=== PATIENT | male | born 1940 | race Caucasian/White ===

== ENCOUNTER 2020-05-30 07:02 | Inpatient (IN) | payer MEDICARE, BC ==
[2020-05-23 12:23] LABS: CLARITY,URINE SLIGHTLY CLOUDY (Clear); COLOR,URINE YELLOW (Yellow); GLUCOSE, URINE NEGATIVE (Neg); KETONES,URINE NEGATIVE (Neg); LEUKOCYTE ESTERASE ,URINE NEGATIVE (Neg); NITRITES, URINE NEGATIVE (Neg); OCCULT BLOOD,URINE NEGATIVE (Neg); PH,URINE 6.5 (4.8-8.0); PROTEIN,URINE NEGATIVE (Neg); UROBILINOGEN,URINE 0.2 E.U/dL (0.2-1.0)
[2020-05-23 12:24] LABS: BASOPHILS # (AUTO) 0.1 X10'3 (0-0.2); EOSINOPHILS # (AUTO) 0.1 X10'3 (0-0.9); EOSINOPHILS % (AUTO) 2.3 % (0-6); LYMPHOCYTES # (AUTO) 2.2 X10'3 (1.1-4.8); LYMPHOCYTES % (AUTO) 40.5 % (21-51); MEAN CORPUSCULAR HEMOGLOBIN 30.5 PG (27.0-31.0); MEAN CORPUSCULAR HGB CONC 33.4 g/dL (33.0-36.5); MEAN CORPUSCULAR VOLUME 91.3 FL (78-98); MEAN PLATELET VOLUME 8.1 FL (7.4-10.4); MONOCYTES # (AUTO) 0.4 X10'3 (0-0.9); MONOCYTES % (AUTO) 6.7 % (2-12); NEUTROPHILS # (AUTO) 2.7 X10'3 (1.8-7.7); NEUTROPHILS % (AUTO) 49.5 % (42-75); PRE OP HEMATOCRIT 46.3 % (42.0-52.0); PRE OP HEMOGLOBIN 15.5 g/dL (14.0-17.9); PRE OP PLATELET COUNT 191 X10'3 (140-440); RED BLOOD COUNT 5.07 X10'6 (4.70-6.10)
[2020-05-23 12:25] LABS: UA COLLECTION TYPE NON-SPECIFIED
[2020-05-23 12:30] LABS: MUCUS STRANDS MANY /LPF (Neg); SQUAMOUS EPITHELIAL CELL,UR FEW /LPF (FEW)
[2020-05-23 12:32] LABS: BACTERIA,URINE FEW /HPF (Neg); RBC,URINE 0-2 /HPF (0-2); WBC,URINE 0-4 /HPF (0-4)
[2020-05-23 12:38] LABS: PRE OP INR 1.1 INR; PRE OP PROTIME 10.9 SECONDS (9.0-12.0)
[2020-05-23 12:39] LABS: ALBUMIN 3.9 G/DL (3.4-5.0); ALKALINE PHOSPHATASE 68 IU/L (46-116); BLOOD UREA NITROGEN 12 MG/DL (7-18); BUN/CREATININE RATIO 16.9 (5.4-32.0); CALCIUM 8.8 MG/DL (8.5-10.1); CHLORIDE 102 MMOL/L (99-107); CREATININE 0.71 MG/DL (0.60-1.10); PRE OP ALT 24 U/L (30-65); PRE OP ANION GAP 6 (8-16); PRE OP AST 20 U/L (10-37); PRE OP BILIRUB, TOTAL 0.5 MG/DL (0.0-1.0); PRE OP GLUCOSE 94 MG/DL (70-104); PRE OP POTASSIUM 4.1 MMOL/L (3.4-5.1); PRE OP SODIUM 139 MMOL/L (135-145); TOTAL CARBON DIOXIDE 31.3 MMOL/L (24-32); TOTAL PROTEIN 7.8 G/DL (6.4-8.2); eGFR > 90 ML/MIN
[~2020-05-30] VITALS: Ht 167.6 cm; Wt 81.3 kg
[2020-05-30] VITALS (21 sets, daily range): BP systolic 111–164; BP diastolic 51–89
[~2020-05-30 07:02] MED LIST: CABE0.5T2 PO; TEST60GE2 TP; ceFAZolin 2gm in dextrose, iso 50 ML IV ONE; famotidine 20mg tablet PO ONE; vancomycin 1,500 MG in NS 300ml IV soln IV ONE
[2020-05-30] MEDS: ringers solution, lacted 1,000 ML IV SCH ×2 (08:18→15:19)
[2020-05-30] MEDS ORDERED: ketorolac trometh. 30mg/ml inj. ONE (09:31)
[2020-05-30] MEDS ORDERED: BUPIVAcaine/PF 2.5 mg/ml (0.25%) 30ml vial ONE (09:31)
[2020-05-30] MEDS ORDERED: tranexamic acid inj. 800 MG in normal saline 100ml IV soln 100 ML IV ONE ×3 (10:20→16:30)
[2020-05-30] MEDS ORDERED: fentaNYL/PF 50MCG/1 ML 2ML syringe ONE ×2 (10:54→11:49)
[2020-05-30] MEDS ORDERED: MIDAZolam 5mg/5ml vial ONE (10:54)
[2020-05-30] MEDS ORDERED: LIDOcaine 2% (20mg/ml) 5ml vial ONE (11:50)
[2020-05-30] MEDS ORDERED: dexamethasone sod phosphate 4mg/ml inj. ONE (11:50)
[2020-05-30] MEDS ORDERED: propofol inj 20 ML IV ONE (11:50)
[2020-05-30] MEDS ORDERED: HYDROmorphone/PF 0.2 MG/ML SYRINGE IV PRN (12:10)
[2020-05-30] MEDS ORDERED: ROPIVAcaine 0.2% (10 MG/5 ML) BOLUS INJECTION ADDCANAL PRN (12:10)
[2020-05-30] MEDS ORDERED: ringers solution, lacted 1,000 ML IV SCH (12:10)
[2020-05-30] MEDS ORDERED: ondansetron/PF 4mg/2ml inj IV PRN ×2 (12:10→13:20)
[2020-05-30] MEDS ORDERED: ROPIVAcaine 0.5% (5mg/ml) 30ml vial ONE (12:25)
[2020-05-30] MEDS ORDERED: ondansetron/PF 4mg/2ml inj ONE (13:03)
[2020-05-30] MEDS ORDERED: HYDROmorphone inj. 0.5 MG/0.5 ML DISP.SYRIN IV PRN (13:20)
[2020-05-30] MEDS ORDERED: bisacodyl 10mg suppository rectal RC PRN (13:20)
[2020-05-30] MEDS ORDERED: diphenhydrAMINE 25mg capsule PO PRN ×2 (13:20)
[2020-05-30] MEDS ORDERED: HYDROmorphone 1 mg/ml syringe IV PRN (13:20)
[2020-05-30] MEDS ORDERED: acetaminophen 325mg tablet PO PRN (13:20)
[2020-05-30] MEDS ORDERED: magnesium hydroxide 30ml (MOM) UD suspension PO PRN (13:20)
[2020-05-30] MEDS ORDERED: oxyCODONE IR 5mg (immed. release) tablet PO PRN ×2 (13:20)
[2020-05-30] MEDS ORDERED: glycopyrrolate 0.2mg/ml inj ONE (13:32)
--- NOTE | 2020-05-30 13:33 | NUR ---
Received from OR via ORTHO BED WITH ELLIOTT , accompanied by Anesthesiologist NOELLE and report given by Anesthesiolgist. VSS. MEDICATED FOR PAIN UPON ARRIVAL LEFT KNEE WRAP PRESENT AND IS CDI. PATIENT WITH 20G PIV IN LEFT UE RUNNING LR AT 100. + DP ON LEFT FOOT. 10L MASK ON WITH 100% SATURATIONS. Addendum: 05/30/20 at 1350 by Jose Molina RN, RN Amended: Links added.
[2020-05-30] MEDS: ROPIVAcaine 0.2%/PF PUMP/bolus 550 ML ADDCANAL SCH (13:51)
[2020-05-30] MEDS: morphine 2 MG/ML inj. syringe IV PRN ×2 (13:52→14:31)
[2020-05-30] MEDS: HYDROmorphone/PF 0.2 MG/ML SYRINGE IV PRN ×2 (13:56→14:20)
[2020-05-30] MEDS ORDERED: acetaminophen 1,000mg/100ml IV 100 ML IV SCH (14:40)
[2020-05-30] MEDS ORDERED: meperidine/PF 25mg/ml syringe IV ONE (14:55)
[2020-05-30] MEDS ORDERED: CADD PCA waste documentation MC PRN (15:00)
[2020-05-30] MEDS ORDERED: naloxone 0.4 mg/ml inj IV PRN (15:00)
--- NOTE | 2020-05-30 15:03 | NUR ---
ALL CRITERIA FOR TRANSFER TO THE FLOOR HAS BEEN ACHIEVED. REPORT GIVEN AND ALL QUESTIONS ANSWERED, VSS. BED LOW 2 RAILS UP, CALL LIGHT PRESENT AND PATIENT HOOKED UP TO ALL LINES AND VSS. PATIENTS RN PRESENT TO ACCEPT CARE. RONDA WU PRESENT TO ACCEPT CARE. VSS. NAUSEATED- RONDA WU GETTING ZOFRAN TO ASSIST. EMESIS BASIS PROVIDED. CADD PUMP CASETTE TO BE DELIVERED TO ORTHO BY PHARMACY. CARE TURNED OVER TO RONDA WU. Addendum: 05/30/20 at 1527 by Jose Arthur - RONDA BOND Amended: Links added.
--- NOTE | 2020-05-30 15:18 | NUR ---
received report from chastity salter
[2020-05-30] MEDS: acetaminophen 325mg tablet PO SCH ×2 (15:19→20:24)
[2020-05-30] MEDS: HYDROmorphone/NS 1 mg/ml CADD 50 ML IV SCH ×5 (15:42→23:00)
[2020-05-30] MEDS: ceFAZolin 1GM/D5W- ADD-VANTAGE 50 ML IV SCH ×2 (16:08→23:41)
--- NOTE | 2020-05-30 18:17 | NUR ---
gave report to chastity richardson
--- NOTE | 2020-05-30 18:30 | NUR ---
Patient in room ORTHO 4015. I have received report from Nicolette BOND and had the opportunity to ask questions and assume patient care.
[2020-05-30] MEDS: potassium cl 20mEq in 1/2 NS 1,000 ML IV SCH ×3 (19:00→23:43)
[2020-05-30] MEDS ORDERED: vancomycin/NS 1 GM ADD-VANTAGE 250 ML IV SCH (20:00)
[2020-05-30] MEDS: sennosides 8.6mg tablet PO SCH (20:23)
[2020-05-31] MEDS: HYDROmorphone/NS 1 mg/ml CADD 50 ML IV SCH ×12 (01:00→23:00)
[2020-05-31 02:00] VITALS: BP 110/72
[2020-05-31] MEDS: acetaminophen 325mg tablet PO SCH ×4 (02:25→20:46)
[2020-05-31 06:00] VITALS: BP 106/62
--- NOTE | 2020-05-31 06:00 | NUR ---
Patient in room ORTHO 4015. I have received report from chastity Ordoñez and had the opportunity to ask questions and assume patient care.
[2020-05-31 06:24] LABS: ANION GAP 5 (8-16); CHLORIDE 106 MMOL/L (99-107); POTASSIUM 4.2 MMOL/L (3.5-5.1); SODIUM 137 MMOL/L (135-145); TOTAL CARBON DIOXIDE 25.9 MMOL/L (24-32)
[2020-05-31 06:31] LABS: BASOPHILS % (AUTO) 0.5 % (0-1); EOSINOPHILS % (AUTO) 0.4 % (0-6); HEMATOCRIT 35.4 % (42.0-52.0); LYMPHOCYTES # (AUTO) 1.5 X10'3 (1.1-4.8); MEAN CORPUSCULAR HEMOGLOBIN 30.7 PG (27.0-31.0); MEAN CORPUSCULAR HGB CONC 33.8 g/dL (33.0-36.5); MEAN CORPUSCULAR VOLUME 90.9 FL (78-98); MEAN PLATELET VOLUME 8.3 FL (7.4-10.4); MONOCYTES # (AUTO) 0.5 X10'3 (0-0.9); MONOCYTES % (AUTO) 6.5 % (2-12); NEUTROPHILS # (AUTO) 5.8 X10'3 (1.8-7.7); NEUTROPHILS % (AUTO) 73.6 % (42-75); PLATELET COUNT 137 X10'3 (140-440); WHITE BLOOD COUNT 7.9 X10'3 (4.5-11.0)
--- NOTE | 2020-05-31 06:37 | NUR ---
Patient in room ORTHO 4015. I have received report from Eloise BOND and had the opportunity to ask questions and assume patient care.
--- NOTE | 2020-05-31 06:38 | NUR ---
Problems reprioritized. Patient report given, questions answered & plan of care reviewed with Amber BOND.
[2020-05-31] MEDS: TESTOSTERONE 10 MG TOP SCH (08:00)
[2020-05-31] MEDS ORDERED: CABERGOLINE PO SCH (08:00)
[2020-05-31] MEDS: potassium cl 20mEq in 1/2 NS 1,000 ML IV SCH ×2 (08:08→16:51)
[2020-05-31] MEDS: aspirin 325mg tablet PO SCH (08:14)
[2020-05-31 10:00] VITALS: BP 123/58
[2020-05-31 15:25] VITALS: BP 101/61
--- NOTE | 2020-05-31 15:30 | NUR ---
Pt s/p left knee arthroplasty, previously on a regular diet eating well with documented 75-100% PO intake, now on a vegetarian diet. Will continue to follow and monitor need for nutrition intervention. Addendum: 05/31/20 at [address] Amended: Links added.
[2020-05-31 18:00] VITALS: BP 104/65
--- NOTE | 2020-05-31 18:05 | NUR ---
Received report from Amber BOND.
--- NOTE | 2020-05-31 18:21 | NUR ---
Problems reprioritized. Patient report given, questions answered & plan of care reviewed with Saumya BOND.
[2020-05-31] MEDS: sennosides 8.6mg tablet PO SCH (20:45)
[2020-05-31 22:00] VITALS: BP 116/73
[2020-06-01] MEDS ORDERED: normal saline 1000ml 1,000 ML IV SCH (00:55)
[2020-06-01] MEDS: HYDROmorphone/NS 1 mg/ml CADD 50 ML IV SCH ×4 (00:59→07:00)
[2020-06-01] MEDS: acetaminophen 325mg tablet PO SCH ×2 (02:00→08:01)
[2020-06-01 06:00] VITALS: BP 130/80
[2020-06-01 06:02] LABS: BASOPHILS % (AUTO) 0.8 % (0-1); EOSINOPHILS # (AUTO) 0.3 X10'3 (0-0.9); EOSINOPHILS % (AUTO) 4.6 % (0-6); HEMATOCRIT 35.2 % (42.0-52.0); LYMPHOCYTES # (AUTO) 1.7 X10'3 (1.1-4.8); LYMPHOCYTES % (AUTO) 27.9 % (21-51); MEAN CORPUSCULAR HEMOGLOBIN 30.8 PG (27.0-31.0); MEAN CORPUSCULAR HGB CONC 34.1 g/dL (33.0-36.5); MEAN CORPUSCULAR VOLUME 90.2 FL (78-98); MEAN PLATELET VOLUME 8.4 FL (7.4-10.4); MONOCYTES # (AUTO) 0.5 X10'3 (0-0.9); MONOCYTES % (AUTO) 7.9 % (2-12); NEUTROPHILS # (AUTO) 3.7 X10'3 (1.8-7.7); NEUTROPHILS % (AUTO) 58.8 % (42-75); PLATELET COUNT 131 X10'3 (140-440); WHITE BLOOD COUNT 6.2 X10'3 (4.5-11.0)
--- NOTE | 2020-06-01 06:11 | NUR ---
Report given to Jersey BOND.
--- NOTE | 2020-06-01 06:28 | NUR ---
Patient in room ORTHO 4007. I have received report from Saumya and had the opportunity to ask questions and assume patient care.
[2020-06-01] MEDS: TESTOSTERONE 10 MG TOP SCH (07:58)
[2020-06-01] MEDS: aspirin 325mg tablet PO SCH (08:01)
[2020-06-01] MEDS: ROPIVAcaine 0.2%/PF PUMP/bolus 550 ML ADDCANAL SCH (09:34)
[2020-06-01 10:00] VITALS: BP 135/79
[2020-06-01] MEDS ORDERED: acetaminophen 325mg tablet PO PRN (13:20)
--- NOTE | 2020-06-01 15:15 | NUR ---
Safe DC. All personal items with patient.
== END 2020-06-01 15:10 | disposition home or self-care (01) | DRG 470 ==
LOC: PAS 07:02 → ORTHO 4S 13:18 → UNDOADMIN 15:17
PROVIDERS: ADMIT Orthopaedic Surgery; ATTEND Orthopaedic Surgery
PROC: 8E0YXBZ Computer Assisted Procedure of Lower Extremity (ICD-10-PCS; 2020-05-30)
PROC: 8E0Y0CZ Robotic Assisted Procedure of Lower Extremity, Open Approach (ICD-10-PCS; 2020-05-30)
PROC: 0SRD0J9 Replacement of Left Knee Joint with Synthetic Substitute, Cemented, Open Approach (ICD-10-PCS; principal; 2020-05-30 10:52)
DX: M17.12 Unilateral primary osteoarthritis, left knee (principal); Z20.828 Contact with and (suspected) exposure to other viral communicable diseases
CPT/HCPCS: 36415; 80051; 80053; 81001; 82948; 85025; 85610; 85730; 87081; 87635; 97110; 97116; 97161; 97530; A4215; A4618; A6454; A7000; C1713; C1758; C1776; G0378; J0131; J0690; J1100; J1170; J1885; J2001; J2175; J2250; J2270; J2405; J2704; J2795; J3010; J3370; J3480; J3490; J7030; J7040; J7120

== ENCOUNTER 2020-06-03 12:50 | Emergency (ER) | payer MEDICARE, BC ==
[~2020-06-03] VITALS: Ht 167.6 cm; Wt 81.3 kg
[~2020-06-03 12:50] MED LIST changes: -ceFAZolin 2gm in dextrose, iso 50 ML IV ONE; -famotidine 20mg tablet PO ONE; -vancomycin 1,500 MG in NS 300ml IV soln IV ONE
[2020-06-03] MEDS ORDERED: HYDROcodone/acetaminophen 10/325mg tab PO ONE (14:10)
--- NOTE | 2020-06-03 14:50 | NUR ---
PROVIDER IN ROOM TO REMOVE WOUND VAC DRESSING AND PAIN CATHETER.
[2020-06-03] MEDS ORDERED: HYDR-4383 PO (14:55)
--- NOTE | 2020-06-03 15:25 | NUR ---
DRESSING RE APPLIED TO LEFT LOWER LEG, CLEANED AND VASALINE GAUZE AND NONADHERANT DRESSING APPLIED AND SECURED WITH ANATOLY WRAP. LEG SOCK PULLED UP OVER THE DRESSING.
[2020-06-03 15:36] VITALS: BP 110/66
== END 2020-06-03 15:37 | disposition home or self-care (01) ==
LOC: ER 12:51
DX: G89.18 Other acute postprocedural pain (principal); M25.562 Pain in left knee; M19.90 Unspecified osteoarthritis, unspecified site; Z79.899 Other long term (current) drug therapy; Z96.652 Presence of left artificial knee joint
CPT/HCPCS: 93971; 99284